=== PATIENT | male | born 1985 | race Caucasian/White ===

== ENCOUNTER 2024-10-15 11:09 | Emergency (ER) | payer BC, SELFPAY ==
[2024-10-15 11:11] VITALS: BP 140/102
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
[2024-10-15 12:06] VITALS: BP 149/97
== END 2024-10-15 12:28 | disposition home or self-care (01) ==
LOC: EMR 11:09
PROVIDERS: EMERGENCY PHYSICIAN Emergency Medicine
DX: F41.9 Anxiety disorder, unspecified (principal); R03.0 Elevated blood-pressure reading, without diagnosis of hypertension
CPT/HCPCS: 99283